=== PATIENT | male | born 1955 | race Caucasian/White ===

== ENCOUNTER → 2019-01-20 12:40 | Outpatient (CLI) | payer OTHER, SELFPAY ==
--- NOTE | 2019-01-20 12:47 | MR_ITS ---
MR shoulder LT wo con HISTORY:Left shoulder pain with limited range of motion ITS.REASON: LEFT SHOULDER PAIN ORDERING PHYSICIAN: Carmen Fowler PATIENT AGE: 63 years Comparison: None TECHNIQUE: Standard multiplanar multiecho sequences are performed without contrast. FINDINGS: There is a low-lying downsloping acromion with an acromiohumeral space of 5.5 mm. There is mild thickening of the supraspinatus tendon with increased T2 signal distally consistent with tendinopathy/tendinosis. There is focal increased T2 signal involving the distal aspect of the infraspinatus tendon consistent with a partial intrasubstance tear with tendinopathy/tendinosis of the infraspinatus tendon. The subscapularis and teres minor tendons are intact. The bicipital tendon is in place. The anterior glenoid labrum has an unremarkable appearance. There is discontinuity involving the posterior aspect of the glenoid with multiple small cystic areas in this region. This may only be due to prominence of subchondral cystic changes. A lytic lesion here however is an additional consideration. Suggest CT scan for further evaluation for bony detail. The posterior labrum is not demonstrated and may be chronically torn/macerated. This multilocular cystic area measures 1.3 x 0.7 cm. There are osteoarthritic changes of the glenohumeral joint IMPRESSION: 1. Low-lying acromion with tendinopathy/tendinosis of the supraspinatus and infraspinatus tendon with suspected partial intrasubstance tear of the infraspinatus tendon. 2. Cystic changes involve the posterior aspect of the bony glenoid with discontinuity posteriorly possibly related related to subchondral cystic changes. A lytic lesion is also a consideration. Suggest CT scan for further evaluation. 3. Osteoarthritis of the glenohumeral joint. 4. Nonvisualization of the posterior glenoid labrum possibly related to chronic tear or chronic maceration from osteoarthritis
== END ==
PROVIDERS: PCP Internal Medicine; Visit Provider Physician Assistant Surgical
DX: M25.512 Pain in left shoulder (principal)
CPT/HCPCS: 73221